=== PATIENT | male | born 1995 | race Caucasian/White ===

== ENCOUNTER 2016-07-23 10:52 | Emergency (ER) | payer OTHER ==
[~2016-07-23] VITALS: Ht 167.6 cm; Wt 70.0 kg
[2016-07-23 10:55] VITALS: BP 120/62; PULSE 72; RESP 16; TEMP 97.7; O2SAT 99
--- NOTE | 2016-07-23 11:26 | PD ---
HPI Chief Complaint: Eye Problems/Injury Time Seen by Provider: 11:25 Travel History International Travel<30 days: No Contact w/Intl Traveler<30days: No Traveled to known affect area: No History of Present Illness HPI 20-year-old male presents to the emergency room with complaint of left eye pain that he woke up this morning. Denies trauma or foreign body. He denies photophobia, change in vision, drainage from the eye. When asked to describe this pain he says is just painful. Rates pain 07/16. No one else with similar symptoms. Has not taken any medication or drainage from his to alleviate his symptoms. Requesting a work release note. No known allergies. No other modifying factors or associated signs and symptoms. [facility] Social History Tobacco Use: No Allergies-Medications (Allergen,Severity, Reaction): Coded Allergies: No Known Allergies (Unverified , 07/23/16) Reported Meds & Prescriptions Reported Meds & Active Scripts Active Polytrim Opth Drops (Polymyxin/Trimethoprim Sulfate) 10,000-0.1 Unit/Ml-% Soln 2 Drop LEFT EYE Q6HR 7 Days Review of Systems Except as stated in HPI: all other systems reviewed are Neg Physical Exam Narrative GENERAL: Well-nourished, well-developed male patient, in no acute distress SKIN: Warm and dry. HEAD: Atraumatic. Normocephalic. EYES: Pupils equal and round at 4 mm with brisk reaction. PERRLA. EOMI. visual acuity both 20/20, left eye 20/20, right 20/20. Left lid eversion with no foreign body noted. Left eye with very mild scleral erythema; without lid edema. No orbital tenderness, erythema or cellulitis. Left eye without photophobia. No consensual photophobia. No scleral icterus. Clear drainage. Christensen lamp exam normal. Left eye tonometry reading 15. ENT: Mucosa pink and moist. Airway patent. NECK: Trachea midline. CARDIOVASCULAR: Regular rate. RESPIRATORY: No accessory muscle use. GASTROINTESTINAL: Flat. NEUROLOGICAL: Awake and alert. Oriented 3. No obvious cranial nerve deficits. Motor grossly within normal limits. Normal speech. PSYCHIATRIC: Appropriate mood and affect; insight and judgment normal. Data Data Last Documented VS Vital Signs Date Time Temp Pulse Resp B/P Pulse Ox O2 Delivery O2 Flow Rate FiO2 3/17/17 10:55 97.7 72 16 120/62 99 Room Air Orders Proparacaine 0.5% Opth Soln (Alcaine 0.5 (07/23/16 11:30) [facility] Medical Decision Making Medical Screen Exam Complete: Yes Emergency Medical Condition: Yes Medical Record Reviewed: Yes Differential Diagnosis Foreign body, conjunctivitis, corneal abrasion Narrative Course 20-year-old male with left eye pain that he woke up this morning. His eye exam is unremarkable. I do not see any reason for his eye pain. I will treat the patient for possible conjunctivitis. Instructed patient to follow up with ophthalmology. Polytrim eyedrops prescribed for home. Patient verbalizes understanding and agreement with treatment plan. Patient is medically cleared and stable for discharge. Discussed reasons to return to the emergency department. Instructed patient to follow up with primary care provider. Patient agrees with treatment plan. The patients vital signs are stable and the patient is stable for outpatient follow-up and treatment. Patient discharged home, stable and in no acute distress. Diagnosis Primary Impression: Left eye pain Referrals: Ortho Assistant Primary Care Physician Patient Instructions: Conjunctivitis (ED), Eye Pain (ED), General Instructions Departure Forms: Tests/Procedures, Work Release Enter return to work date: Jul 24, 2016 Additional Instructions: Conjunctivitis is contagious Use antibiotic drops as prescribed Apply warm or cool compresses to both eyes for a few minutes several times daily to minimize irritation Avoid triggers, such as allergens, that may irritate your eyes Wash your hands frequently Do not share washcloths, towels, pillows, or any other material that has touched your eyes with any other household members Follow-up with your primary care provider Follow-up with ophthalmology as needed Return to the emergency department immediately with worsening of symptoms Med/Other Pt SpecificInfo: Prescription(s) given Scripts Polymyxin B-Trimethoprim Opth Drops (Polytrim Opth Drops)10,000-0.1 Unit/Ml-% Soln2 Drop LEFT EYE Q6HR 7 Days Ref 0 Prov:Eda England 07/23/16 Disposition: 01 DISCHARGE HOME Condition: Stable Eda England Jul 23, 2016 11:25
[2016-07-23] MEDS ORDERED: PROPARACAINE HCL 0.5% OPHT SOLN 15 ML BTL LEFT EYE ONE (11:30)
[2016-07-23] MEDS ORDERED: POLY10O LEFT EYE (11:51)
== END 2016-07-23 12:25 | disposition home or self-care (01) ==
LOC: NEPB 10:52
DX: H57.11 Ocular pain, right eye (principal)
CPT/HCPCS: 99283

== ENCOUNTER 2017-01-10 00:09 | Emergency (ER) | payer SELFPAY ==
[~2017-01-10] VITALS: Ht 177.8 cm; Wt 63.6 kg
[~2017-01-10 00:09] MED LIST: POLY10O LEFT EYE
[2017-01-10 00:12] VITALS: BP 133/67; PULSE 102; RESP 16; TEMP 99.6; O2SAT 98
[2017-01-10 01:01] VITALS: BP 138/74; PULSE 86; RESP 18; O2SAT 99
--- NOTE | 2017-01-10 01:26 | PD ---
HPI Chief Complaint: Abdominal Pain Time Seen by Provider: 01:24 Travel History International Travel<30 days: No Contact w/Intl Traveler<30days: No Traveled to known affect area: No History of Present Illness HPI 21-year-old male presents to the emergency department for complaint of nosebleed rhinorrhea and cough congestion abdominal pain and generalized weakness times one day other upper respiratory symptoms and abdominal pain times several days; patient also reports history of chronic abdominal pain. Facial pain for over 10 intensity abdominal pain 4-6/10 in intensity. PFSH Past Medical History Medical History: Denies Significant Hx Tetanus Vaccination: Unknown Influenza Vaccination: No Past Surgical History Surgical History: No Previous Surgery Social History Alcohol Use: Yes (RARELY ) Tobacco Use: Yes Substance Use: No Allergies-Medications (Allergen,Severity, Reaction): Coded Allergies: No Known Allergies (Unverified , 01/10/17) Reported Meds & Prescriptions Reported Meds & Active Scripts Active Amoxicillin 875 Mg Tab 875 Mg PO BID 10 Days Physical Exam Narrative GENERAL: Well-developed well-nourished male in no acute distress no respiratory distress SKIN: Warm and dry. HEAD: Normocephalic. EYES: No scleral icterus. No injection or drainage. ENT: Mucous membranes moist no posterior pharyngeal blood erythema edema or exudative change; bilateral nares dried blood no septal hematoma no thrombus no active bleeding; sinuses tender to percussion over the maxillary sinuses left greater than right NECK: Supple, trachea midline. No JVD or lymphadenopathy. CARDIOVASCULAR: Regular rate and rhythm without murmurs, gallops, or rubs. RESPIRATORY: Breath sounds equal bilaterally. No accessory muscle use. GASTROINTESTINAL: Abdomen soft, non-tender, nondistended. MUSCULOSKELETAL: No cyanosis, or edema. BACK: Nontender without obvious deformity. No CVA tenderness. Data Data Last Documented VS Vital Signs Date Time Temp Pulse Resp B/P (MAP) Pulse Ox O2 Delivery O2 Flow Rate FiO2 01/10/17 03:08 01/10/17 02:31 98 Room Air 01/10/17 01:01 86 18 01/10/17 00:12 99.6 Orders Orders Complete Blood Count With Diff (01/10/17 01:24) Comprehensive Metabolic Panel (01/10/17 01:24) Lipase (01/10/17 01:24) Urinalysis - C+S If Indicated (01/10/17 01:24) Iv Access Insert/Monitor (01/10/17 01:24) Ecg Monitoring (01/10/17 01:24) Oximetry (01/10/17 01:24) Sodium Chlor 0.9% 1000 Ml Inj (Ns 1000 M (01/10/17 01:30) Amoxicillin (Trimox) (01/10/17 03:15) Labs Laboratory Tests Test 01/10/17 01:30 01/10/17 02:13 White Blood Count 7.1 TH/MM3 Red Blood Count 4.21 MIL/MM3 Hemoglobin 13.5 GM/DL Hematocrit 39.8 % Mean Corpuscular Volume 94.3 FL Mean Corpuscular Hemoglobin 32.0 PG Mean Corpuscular Hemoglobin Concent 34.0 % Red Cell Distribution Width 13.4 % Platelet Count 105 TH/MM3 Mean Platelet Volume 9.2 FL Neutrophils (%) (Auto) 68.9 % Lymphocytes (%) (Auto) 16.3 % Monocytes (%) (Auto) 13.4 % Eosinophils (%) (Auto) 1.1 % Basophils (%) (Auto) 0.3 % Neutrophils # (Auto) 4.9 TH/MM3 Lymphocytes # (Auto) 1.2 TH/MM3 Monocytes # (Auto) 1.0 TH/MM3 Eosinophils # (Auto) 0.1 TH/MM3 Basophils # (Auto) 0.0 TH/MM3 CBC Comment DIFF FINAL Differential Comment Blood Urea Nitrogen 12 MG/DL Creatinine 0.86 MG/DL Random Glucose 96 MG/DL Total Protein 6.6 GM/DL Albumin 3.6 GM/DL Calcium Level 8.5 MG/DL Alkaline Phosphatase 71 U/L Aspartate Amino Transf (AST/SGOT) 15 U/L Alanine Aminotransferase (ALT/SGPT) 23 U/L Total Bilirubin 0.3 MG/DL Sodium Level 141 MEQ/L Potassium Level 4.3 MEQ/L Chloride Level 107 MEQ/L Carbon Dioxide Level 29.1 MEQ/L Anion Gap 5 MEQ/L Estimat Glomerular Filtration Rate 112 ML/MIN Lipase 119 U/L Urine Color YELLOW Urine Turbidity HAZY Urine pH 6.5 Urine Specific [place] 1.029 Urine Protein TRACE mg/dL Urine Glucose (UA) NEG mg/dL Urine Ketones NEG mg/dL Urine Occult Blood NEG Urine Nitrite NEG Urine Bilirubin NEG Urine Urobilinogen 2.0 MG/DL Urine Leukocyte Esterase SMALL Urine RBC 3 /hpf Urine WBC 8 /hpf Urine Transitional Epithelial Cells <1 /hpf Urine Amorphous Sediment RARE Urine Mucus MOD /lpf Microscopic Urinalysis Comment CULT NOT INDICATED MDM Medical Decision Making Medical Screen Exam Complete: Yes Emergency Medical Condition: Yes Medical Record Reviewed: Yes Interpretation(s) CBC & BMP Diagram 01/10/17 01:30 Total Protein 6.6, Albumin 3.6, Calcium Level 8.5, Alkaline Phosphatase 71, Aspartate Amino Transf (AST/SGOT) 15, Alanine Aminotransferase (ALT/SGPT) 23, Total Bilirubin 0.3 Vital Signs Date Time Temp Pulse Resp B/P (MAP) Pulse Ox O2 Delivery O2 Flow Rate FiO2 01/10/17 02:31 98 Room Air 01/10/17 01:01 86 18 138/74 (95) 99 Room Air 01/10/17 00:12 99.6 102 16 133/67 (89) 98 Room Air Differential Diagnosis epistaxis, sinusitis, anemia, chronic abdominal wall pain, URI, UTI; unlikely atypical appendicitis Narrative Course IV access obtained specimens collected and sent for resulting Patient given IV fluids Patient given first dose of oral antibiotic Patient stable for outpatient management Diagnosis Primary Impression: Acute sinusitis Qualified Codes: J01.00 - Acute maxillary sinusitis, unspecified Additional Impression: Abdominal wall pain Referrals: Primary Care Physician call for appointment Patient Instructions: General Instructions Med/Other Pt SpecificInfo: Prescription(s) given Scripts Amoxicillin (Amoxicillin) 875 Mg Tab 875 MG PO BID for Infection for 10 Days, TAB 0 Refills Prov: Opal Taylor MD 01/10/17 Opal Taylor MD Jan 10, 2017 01:26
[2017-01-10] MEDS ORDERED: SODIUM CHLOR 0.9% 1000 ML INJ 1,000 ML IV ONE (01:30)
[2017-01-10 01:54] LABS: AUTOMATED NEUTROPHIL # 4.9 TH/MM3 (1.8-7.7); BASOPHIL % 0.3 % (0.0-2.0); EOSINOPHIL # 0.1 TH/MM3 (0-0.4); EOSINOPHIL % 1.1 % (0.0-4.0); HEMATOCRIT 39.8 % (39.0-51.0); HEMO FLAGS DIFF FINAL; LYMPH % 16.3 % (9.0-44.0); LYMPHOCYTE # 1.2 TH/MM3 (1.0-4.8); MEAN CELL VOLUME 94.3 FL (80.0-100.0); MONO % 13.4 % (0.0-8.0); NEUT % 68.9 % (16.0-70.0); PLATELET COUNT 105 TH/MM3 (150-450); RED BLOOD COUNT 4.21 MIL/MM3 (4.50-5.90); RED CELL DISTRIBUTION WIDTH 13.4 % (11.6-17.2); WHITE BLOOD COUNT 7.1 TH/MM3 (4.0-11.0)
[2017-01-10 02:18] LABS: ALT (GPT) 23 U/L (12-78); ANION GAP 5 MEQ/L (5-15); AST (GOT) 15 U/L (15-37); BICARBONATE 29.1 MEQ/L (21.0-32.0); BLOOD UREA NITROGEN 12 MG/DL (7-18); CHLORIDE 107 MEQ/L (98-107); GLOMERULAR FILTRATION RATE 112 ML/MIN (>89); POTASSIUM 4.3 MEQ/L (3.5-5.1); SODIUM (NA) 141 MEQ/L (136-145)
[2017-01-10 02:20] LABS: ALKALINE PHOSPHATASE 71 U/L (45-117); TOTAL BILIRUBIN ADULT 0.3 MG/DL (0.2-1.0)
[2017-01-10 02:26] LABS: BLOOD, URINE NEG (NEG); GLUCOSE,URINE NEG (NEG); KETONE, URINE NEG (NEG); MUCUS URINE MOD /lpf (OCC); NITRITE,URINE NEG (NEG); PH, URINE 6.5 (5.0-8.5); TRANSITIONAL EPI CELLS, URINE <1 /hpf; URINE COLOR YELLOW (YELLW/STRAW)
[2017-01-10 02:31] VITALS: O2SAT 98
[2017-01-10 02:31] LABS: COMMENT (UR) CULT NOT INDICATED; CULTURE IF INDICATED CULT NOT INDICATED
[2017-01-10] MEDS ORDERED: AMOX875T PO (03:01)
[2017-01-10] MEDS ORDERED: AMOXICILLIN 875 MG TAB PO ONE (03:15)
== END 2017-01-10 03:24 | disposition home or self-care (01) ==
LOC: NEPC 00:09
DX: J01.00 Acute maxillary sinusitis, unspecified (principal); R10.9 Unspecified abdominal pain; Z72.0 Tobacco use
CPT/HCPCS: 80053; 81001; 83690; 85025; 96360; 99284; J7030

== ENCOUNTER 2017-01-28 19:20 | Emergency (ER) | payer SELFPAY ==
[~2017-01-28] VITALS: Ht 177.8 cm; Wt 65.0 kg
[~2017-01-28 19:20] MED LIST changes: +AMOX875T PO; -POLY10O LEFT EYE
[2017-01-28 19:23] VITALS: BP 140/76; PULSE 109; RESP 14; TEMP 98.2; O2SAT 99
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
== END 2017-01-28 20:09 | disposition left against medical advice (07) ==
LOC: NEPK 19:20
DX: M79.631 Pain in right forearm (principal)
CPT/HCPCS: 99281

== ENCOUNTER 2017-03-21 02:07 | Emergency (ER) | payer SELFPAY ==
[~2017-03-21] VITALS: Ht 177.8 cm; Wt 65.0 kg
[2017-03-21 02:09] VITALS: BP 141/90; PULSE 91; RESP 16; TEMP 97.8; O2SAT 98
[2017-03-21] MEDS ORDERED: NAPROXEN 500 MG TAB PO ONE (02:45)
[2017-03-21] MEDS ORDERED: CLINDAMYCIN 150 MG CAP PO ONE (02:45)
--- NOTE | 2017-03-21 02:45 | PD ---
HPI Chief Complaint: Oral / Dental Pain or Problem Time Seen by Provider: 02:28 Travel History International Travel<30 days: No Contact w/Intl Traveler<30days: No Traveled to known affect area: No History of Present Illness HPI Patient comes in complaining of right upper dental pain ongoing for a week. Patient has been using [id number] Tylenol and Goody's powder with some improvement of pain. Pain is worse with eating or drinking anything. Pain radiates into his right ear. Patient denies any nausea, vomiting, fevers, headaches, change in vision, difficulty swallowing, or neck pain. Patient states he has not seen a dentist in a while. PFSH Past Medical History Medical History: Denies Significant Hx Influenza Vaccination: No Past Surgical History Surgical History: No Previous Surgery Social History Alcohol Use: Yes (RARELY ) Tobacco Use: Yes Substance Use: No Allergies-Medications (Allergen,Severity, Reaction): Coded Allergies: No Known Allergies (Unverified Adverse Reaction, Unknown, 03/21/17) Reported Meds & Prescriptions Reported Meds & Active Scripts Active Naprosyn (Naproxen) 500 Mg Tab 500 Mg PO Q12HR PRN Clindamycin (Clindamycin HCl) 150 Mg Cap 2 Cap PO Q6H 10 Days Review of Systems Except as stated in HPI: all other systems reviewed are Neg Physical Exam Narrative GENERAL: Well-developed, well nourished, in no acute distress, and non-ill appearing. SKIN: Focused skin assessment warm and dry. HEAD: Atraumatic. Normocephalic. EYES: Pupils equal and round. EOMI. No scleral icterus. No injection or drainage. ENT: No nasal bleeding or discharge. Mucous membranes pink and moist. Poor dentition with no visible or palpable abscess. Uvula is midline. Floor the mouth, submandibular, and submental are all soft palpation. NECK: Trachea midline. No cervical lymphadenopathy. Supple. No nuclear rigidity. RESPIRATORY: No accessory muscle use. No respiratory distress. MUSCULOSKELETAL: No obvious deformities. No clubbing. No cyanosis. No edema. Full range of motion. NEUROLOGICAL: Awake and alert. No obvious cranial nerve deficits. Motor grossly within normal limits. PSYCHIATRIC: Appropriate mood and affect; insight and judgment normal. Data Data Last Documented VS Vital Signs Date Time Temp Pulse Resp B/P (MAP) Pulse Ox O2 Delivery O2 Flow Rate FiO2 03/21/17 02:09 97.8 91 16 141/90 (107) 98 Orders Orders Clindamycin (Cleocin) (03/21/17 02:45) Naproxen (Naprosyn) (03/21/17 02:45) Ed Discharge Order (03/21/17 02:40) [facility] Medical Decision Making Medical Screen Exam Complete: Yes Emergency Medical Condition: Yes Differential Diagnosis Dental abscess, dental infection, dentalgia, other Narrative Course The patient presented with dental pain. There is no fever. There is no significant facial swelling or evidence of cellulitis. There is poor dentition but no evidence of drainable abscess at this time. There is no evidence of significant deep or invading abscess at this time. The patient will be placed on antibiotics and pain medication. The patient was instructed to follow up with a dentist. The patient was given the dental referral sheet. Warnings were discussed with the patient regarding worsening of infection. The patient is to return if pain worsens, develops progressive swelling or facial redness or fever. The patient agrees with plan. Patient in no obvious distress upon re-evaluation. Patient was asked if they wanted to speak to my attending, which the patient did not wish to do at this time. Any questions/concerns in reference to patient diagnosis/condition discussed and clarified prior to patient's discharge. Reinforced sheer importance of close follow up with patient's primary physician or primary care clinic and/or dentist. Instructed patient to return to ED immediately, if symptoms return/worsen. Patient showed understanding of above instructions. Further instructions and recommendations were detailed in discharge paperwork. Patient ambulated without difficulty out of ED at discharge. Diagnosis Primary Impression: Infected dental caries Referrals: [facility] Patient Instructions: Dental Abscess (ED), Dental Caries (DC), General Instructions Additional Instructions: Follow-up with your primary care physician and dentist as soon as possible. Rinse mouth with warm salt water gargles. Take all medication as prescribed. Return to the emergency department if symptoms get worse. Med/Other Pt SpecificInfo: Prescription(s) given Scripts Naproxen (Naprosyn) 500 Mg Tab 500 MG PO Q12HR Y for PAIN SCALE 1 TO 10, #14 TAB 0 Refills Prov: Opal Taylor MD 03/21/17 Clindamycin (Clindamycin) 150 Mg Cap 2 CAP PO Q6H for Infection for 10 Days, #80 CAP 0 Refills Prov: Opal Taylor MD 03/21/17 Disposition: 01 DISCHARGE HOME Condition: Stable Brandon Joseph Mar 21, 2017 02:45
[2017-03-21] MEDS ORDERED: CLIN150C14 PO (02:46)
[2017-03-21] MEDS ORDERED: NAPR500 PO (02:46)
== END 2017-03-21 03:43 | disposition home or self-care (01) ==
LOC: NEPD 02:07
DX: K02.9 Dental caries, unspecified (principal); Z72.0 Tobacco use
CPT/HCPCS: 99284